=== PATIENT | male | born 1955 | race Caucasian/White ===

== ENCOUNTER 2022-09-19 07:24 | Outpatient (CLI) | payer MEDICARE, OTHER ==
--- NOTE | 2022-09-19 12:12 | Ultrasound Report ---
PROCEDURE: Aorta Screening INDICATIONS: TOBACCO DEPENDENCE TECHNIQUE: Real time scanning was performed of the aorta and iliac arteries, with image documentatio n. COMPARISON: None. FINDINGS: Aorta: Proximal aortic diameter measures 2.3 x 2.4 cm. Mid-aorta measures 2.2 x 2.3 cm. Distal aor tic diameter is 1.8 x 1.9 cm. Iliac arteries: Right common iliac artery measures 1.3 x 1.6 cm. Left common iliac artery measures 1.9 x 1.9 cm. IMPRESSION: Unremarkable abdominal aortic ultrasound without evidence of aneurysm Reviewed by: Daron Wilkes MD on 09/19/2022 11:11 AM ADILSON Approved by: Daron Wilkes MD on 09/19/2022 11:11 AM ADILSON Station ID: [id number]
--- NOTE | 2022-09-19 12:16 | CT Report ---
PROCEDURE: Low Dose Lung Cancer Screen INDICATIONS: TOBACCO DEPENDENCE TECHNIQUE: A CT scan of the chest was performed. Intravenous contrast media was not administered. Images were re corded and evaluated at appropriate window settings. Reformats: axial MIP of the chest, coronal and s agittal. For radiation dose reduction, the following was used: automated exposure control, adjustment of mA and/or kV according to patient size. COMPARISON: None. FINDINGS: Image quality: Excellent. Prior cancer history: No. Lungs and pleura: No pleural effusions. No pneumothorax. 5 mm solid nodule, right lower lobe (series 4, image 29) Mediastinum: Heart size is normal. No pericardial effusion. No large vessel abnormality. No mediastin al adenopathy by size criteria. No significant coronary calcifications. Chest wall and lower neck: Thyroid is unremarkable. No axillary or supraclavicular adenopathy by size . Gynecomastia. Bones: No aggressive osseous abnormality. Low bone mineralization by Hounsfield unit criteria. Upper Abdomen: Unremarkable. IMPRESSION: Lung RAD: 2 - Benign. Recommendation: Continue annual screening in 12 Months with LDCT Non-Lung Significant Findings: None. Low bone mineralization by Hounsfield criteria. Consider DEXA scan for confirmation. Reviewed by: Niranjan Franco on 09/19/2022 12:15 PM PDT Approved by: Niranjan Franco on 09/19/2022 12:15 PM PDT Station ID: [id number]
== END 2022-09-19 07:25 | disposition home or self-care (01) ==
LOC: DI 07:24
PROVIDERS: ATTEND Physician Assistant
DX: Z12.2 Encounter for screening for malignant neoplasm of respiratory organs (principal); Z13.6 Encounter for screening for cardiovascular disorders; F17.210 Nicotine dependence, cigarettes, uncomplicated

== ENCOUNTER 2023-11-05 09:24 | Outpatient (CLI) | payer MEDICARE, OTHER ==
[2023-11-05 10:04] LABS: BASOPHILS # (AUTO) 0.1 10^3/uL (0.0-0.1); BASOPHILS % (AUTO) 0.5 %; EOSINOPHILS # (AUTO) 0.1 10^3/uL (0.0-0.7); HCT - HEMATOCRIT 45.1 % (42.0-52.0); HGB - HEMOGLOBIN 14.8 g/dL (14.0-18.0); LYMPHOCYTES # (AUTO) 3.2 10^3/uL (1.5-3.5); LYMPHOCYTES % (AUTO) 34.8 %; MEAN CORPUSCULAR HEMOGLOBIN 30.4 pg (27.0-31.0); MEAN CORPUSCULAR HGB CONC 32.8 g/dL (32.0-36.0); MEAN CORPUSCULAR VOLUME 92.6 fL (80.0-94.0); MEAN PLATELET VOLUME 9.8 fL (7.4-11.4); MONOCYTES # (AUTO) 0.7 10^3/uL (0.0-1.0); MONOCYTES % (AUTO) 7.3 %; NEUTROPHILS # (AUTO) 5.2 10^3/uL (1.5-6.6); NEUTROPHILS % (AUTO) 55.9 %; PLT - PLATELET COUNT 250 10^3/uL (130-450); RED BLOOD COUNT 4.87 10^6/uL (4.70-6.10); RED CELL DISTRIBUTION WIDTH 13.8 % (12.0-15.0); WHITE BLOOD COUNT 9.3 x10^3/uL (4.8-10.8)
[2023-11-05 10:12] LABS: CHOL/HDL RATIO 3.3 (<5.0); CHOLESTEROL 226 mg/dL; HDL CHOLESTEROL 69 mg/dL; LDL CHOLESTEROL,CALCULATED 144 mg/dL; LDL/HDL RATIO 2.1 (<3.6); TRIGLYCERIDES 65 mg/dL; VLDL CHOLESTEROL 13 mg/dL
[2023-11-05 10:24] LABS: THYROID STIMULATING HORMONE 2.78 uIU/mL (0.34-5.60)
--- NOTE | 2023-11-05 17:20 | CT Report ---
PROCEDURE: Lung Cancer Screen INDICATIONS: SMOKER TECHNIQUE: A CT scan of the chest was performed. Intravenous contrast media was not administered. Images were re corded and evaluated at appropriate window settings. Reformats: axial MIP of the chest, coronal and s agittal. For radiation dose reduction, the following was used: automated exposure control, adjustment of mA and/or kV according to patient size. COMPARISON: CT chest on September 19, 2022. FINDINGS: Image quality: Excellent. Prior cancer history: Unsure. Lungs and pleura: No pleural effusions. No pneumothorax. Compared to CT chest dated September 19, 2022, no new or enlarging solid pulmonary nodule or consolidation. Stable left upper lobe solid, noncalcified pulmonary nodule measuring 2 mm (08/08). Stable right lower lobe solid noncalcified nodule measuring 5, best seen on coronal view (). Patent central airways. Mediastinum: Heart size is normal. No pericardial effusion. No large vessel abnormality. No mediastin al adenopathy by size criteria. Minimal calcification of the thoracic aorta. No significant coronary vessel calcification. Chest wall and lower neck: Thyroid is unremarkable. No axillary or supraclavicular adenopathy by size . Mild bilateral gynecomastia. Bones: No aggressive osseous abnormality. No acute fracture. Mild multilevel degenerative changes of the spine. Stable sclerotic focus in the sternum with narrow zone of transition and no cortical break through appears benign (). Upper Abdomen: Unremarkable. IMPRESSION: Compared to CT dated September 19, 2022, no new or enlarging solid pulmonary nodule or consolidation. Lung RAD: 2 - Benign. Recommendation: Continue annual screening in 12 Months with LDCT Reviewed by: Stephani Vaughan MD on 11/05/2023 5:19 PM PDT Approved by: Stephani Vaughan MD on 11/05/2023 5:19 PM PDT Station ID: [id number]
[2023-11-06 08:12] LABS: HIV SCREEN 4TH GENERATION Non Reactive (Non Reactive)
== END 2023-11-05 09:25 | disposition home or self-care (01) ==
LOC: DI 09:24
PROVIDERS: ATTEND Physician Assistant
DX: Z12.2 Encounter for screening for malignant neoplasm of respiratory organs (principal); I10 Essential (primary) hypertension; Z12.5 Encounter for screening for malignant neoplasm of prostate; Z13.220 Encounter for screening for lipoid disorders; F17.210 Nicotine dependence, cigarettes, uncomplicated; F10.10 Alcohol abuse, uncomplicated
CPT/HCPCS: 36415; 71271; 80061; 84443; 85025; 86803; G0103; G0475; 83721; 84153; 87389